=== PATIENT | female | born 1960 | race Caucasian/White ===

== ENCOUNTER → 2018-02-28 12:40 | Outpatient (CLI) | payer SELFPAY ==
[2018-02-28 13:35] LABS: ALKALINE PHOSPHATASE 174 U/L (46-116); ALT (SGPT) 13 U/L (10-68); BILIRUBIN - TOTAL 0.29 mg/dL (0.2-1.3); CALC OSMOLALITY 279 mosm/kg (275-300); CALCIUM 8.5 mg/dL (8.5-10.1); CARBON DIOXIDE 30.2 mmol/L (21.0-32.0); CHLORIDE - SERUM 105 mmol/L (98-107); CREATININE - SERUM 0.6 mg/dL (0.6-1.3); GLUCOSE 77 mg/dL (74-106); PROTEIN - SERUM 6.8 g/dL (6.4-8.2); SODIUM 142 mmol/L (136-145); UREA NITROGEN 6 mg/dL (7-18); VANCOMYCIN - TROUGH 23.1 ug/mL (10.0-20.0); eGFR NON AFRICAN AMERICAN > 90 mL/min (90-120)
== END | disposition home or self-care (01) ==
LOC: D.LABREF 12:40
PROVIDERS: Internal Medicine
DX: L03.311 Cellulitis of abdominal wall (principal)

== ENCOUNTER → 2018-03-03 16:06 | Outpatient (CLI) | payer MEDICAID ==
[2018-03-03 17:51] LABS: ALBUMIN 2.1 g/dL (3.4-5.0); ALKALINE PHOSPHATASE 227 U/L (46-116); ALT (SGPT) 21 U/L (10-68); CALC OSMOLALITY 285 mosm/kg (275-300); CALCIUM 7.9 mg/dL (8.5-10.1); CARBON DIOXIDE 26.8 mmol/L (21.0-32.0); CHLORIDE - SERUM 109 mmol/L (98-107); CREATININE - SERUM 0.6 mg/dL (0.6-1.3); POTASSIUM - SERUM 3.9 mmol/L (3.5-5.1); SODIUM 146 mmol/L (136-145); UREA NITROGEN 7 mg/dL (7-18); VANCOMYCIN - TROUGH 20.8 ug/mL (10.0-20.0); eGFR NON AFRICAN AMERICAN > 90 mL/min (90-120)
[2018-03-03 18:23] LABS: GLUCOSE 48 mg/dL (74-106)
== END | disposition home or self-care (01) ==
LOC: D.LABREF 16:06
PROVIDERS: Surgery
DX: L03.311 Cellulitis of abdominal wall (principal)

== ENCOUNTER → 2018-03-10 21:16 | Outpatient (CLI) | payer MEDICAID ==
[2018-03-10 22:40] LABS: ALBUMIN 2.1 g/dL (3.4-5.0); ALKALINE PHOSPHATASE 234 U/L (46-116); ALT (SGPT) 32 U/L (10-68); CALC OSMOLALITY 282 mosm/kg (275-300); CALCIUM 8.2 mg/dL (8.5-10.1); CARBON DIOXIDE 26.8 mmol/L (21.0-32.0); CHLORIDE - SERUM 111 mmol/L (98-107); CREATININE - SERUM 0.7 mg/dL (0.6-1.3); POTASSIUM - SERUM 3.7 mmol/L (3.5-5.1); PROTEIN - SERUM 6.1 g/dL (6.4-8.2); SODIUM 145 mmol/L (136-145); UREA NITROGEN 8 mg/dL (7-18); VANCOMYCIN - TROUGH 22.9 ug/mL (10.0-20.0); eGFR NON AFRICAN AMERICAN 90 mL/min (90-120)
[2018-03-10 22:41] LABS: GLUCOSE 30 mg/dL (74-106)
== END | disposition home or self-care (01) ==
LOC: D.LABREF 21:16
PROVIDERS: Internal Medicine
DX: L02.211 Cutaneous abscess of abdominal wall (principal); N64.89 Other specified disorders of breast

== ENCOUNTER → 2018-03-24 16:21 | Outpatient (CLI) | payer MEDICAID ==
[2018-03-24 20:09] LABS: HEMATOCRIT 32.6 % (36.0-48.0); MCH 27.1 pg (26.0-34.0); MCHC 30.7 g/dL (31.0-37.0); MCV 88.3 fL (80.0-100.0); MEAN PLATELET VOLUME 10.6 fL (7.4-10.4); PLATELET COUNT 160 10x3/uL (130-400); RBC 3.69 10x6/uL (4.00-5.40); RDW 15.7 % (11.5-14.5); WBC 2.4 10x3/uL (4.8-10.8)
[2018-03-24 20:46] LABS: CALC OSMOLALITY 282 mosm/kg (275-300); CALCIUM 8.4 mg/dL (8.5-10.1); CARBON DIOXIDE 27.4 mmol/L (21.0-32.0); CHLORIDE - SERUM 108 mmol/L (98-107); CREATININE - SERUM 0.5 mg/dL (0.6-1.3); POTASSIUM - SERUM 4.5 mmol/L (3.5-5.1); SODIUM 143 mmol/L (136-145); UREA NITROGEN 13 mg/dL (7-18); eGFR NON AFRICAN AMERICAN > 90 mL/min (90-120)
[2018-03-24 20:49] LABS: GLUCOSE 57 mg/dL (74-106)
[2018-03-24 21:13] LABS: EOSINOPHILS 9 % (0-7); LYMPHOCYTES 39 % (15-50); MONOCYTES 1 % (2-11); NEUTROPHILS 51 % (40-80); PLATELET ESTIMATE NORMAL
== END | disposition home or self-care (01) ==
LOC: D.LAB 16:21
PROVIDERS: Internal Medicine
DX: L02.211 Cutaneous abscess of abdominal wall (principal); Z98.84 Bariatric surgery status

== ENCOUNTER → 2018-05-01 17:30 | Outpatient (CLI) | payer MEDICAID ==
[2018-05-01 20:01] LABS: BASOPHILS 0.2 % (0-2); EOSINOPHILS 6.2 % (0-7); HEMATOCRIT 29.4 % (36.0-48.0); HEMOGLOBIN 9.2 g/dL (12-16); IMMATURE GRANULOCYTES 0.2 % (0-5); MCH 27.3 pg (26.0-34.0); MCHC 31.3 g/dL (31.0-37.0); MCV 87.2 fL (80.0-100.0); MEAN PLATELET VOLUME 9.3 fL (7.4-10.4); MONOCYTES 2.4 % (2-11); PLATELET COUNT 151 10x3/uL (130-400); RBC 3.37 10x6/uL (4.00-5.40); RDW 17.1 % (11.5-14.5); WBC 4.2 10x3/uL (4.8-10.8)
[2018-05-01 20:30] LABS: ALBUMIN 2.2 g/dL (3.4-5.0); ALKALINE PHOSPHATASE 241 U/L (46-116); ALT (SGPT) 42 U/L (10-68); BILIRUBIN - INDIRECT 0.14 mg/dL (0.00-1.00); BILIRUBIN - TOTAL 0.17 mg/dL (0.2-1.3); CALC OSMOLALITY 276 mosm/kg (275-300); CALCIUM 7.9 mg/dL (8.5-10.1); CARBON DIOXIDE 27.2 mmol/L (21.0-32.0); CHLORIDE - SERUM 106 mmol/L (98-107); CHOLESTEROL, TOTAL 144 mg/dL (0-200); CREATININE - SERUM 0.5 mg/dL (0.6-1.3); GLUCOSE 76 mg/dL (74-106); HDL CHOLESTEROL 36 mg/dL (32-96); LDL CHOLESTEROL 98 mg/dL (0-100); LDL-HDL RATIO 2.7 ratio (1.5-3.5); POTASSIUM - SERUM 4.5 mmol/L (3.5-5.1); PROTEIN - SERUM 6.6 g/dL (6.4-8.2); SODIUM 140 mmol/L (136-145); T4 THYROXIN - FREE 0.98 ng/dL (0.76-1.46); TRIGLYCERIDE 53 mg/dL (30-200); UREA NITROGEN 10 mg/dL (7-18); eGFR NON AFRICAN AMERICAN > 90 mL/min (90-120)
[2018-05-01 20:37] LABS: BILIRUBIN - DIRECT 0.03 mg/dL (0.00-0.30)
[2018-05-03 20:07] LABS: VITAMIN D 25 HYDROXY 21.1 ng/mL (30.0-100.0)
== END | disposition home or self-care (01) ==
LOC: D.LABREF 17:30
PROVIDERS: Internal Medicine
DX: R63.4 Abnormal weight loss (principal); L02.91 Cutaneous abscess, unspecified; E87.6 Hypokalemia; E16.2 Hypoglycemia, unspecified

== ENCOUNTER → 2018-05-23 13:33 | Outpatient (CLI) | payer MEDICAID ==
[2018-05-23 14:15] LABS: CALC OSMOLALITY 278 mosm/kg (275-300); CALCIUM 7.3 mg/dL (8.5-10.1); CARBON DIOXIDE 28.1 mmol/L (21.0-32.0); CHLORIDE - SERUM 107 mmol/L (98-107); CREATININE - SERUM 0.6 mg/dL (0.6-1.3); GLUCOSE 102 mg/dL (74-106); POTASSIUM - SERUM 3.9 mmol/L (3.5-5.1); SODIUM 139 mmol/L (136-145); UREA NITROGEN 15 mg/dL (7-18); VANCOMYCIN - TROUGH 16.3 ug/mL (10.0-20.0); eGFR NON AFRICAN AMERICAN > 90 mL/min (90-120)
== END | disposition home or self-care (01) ==
LOC: D.LABREF 13:33
PROVIDERS: Surgery
DX: L03.311 Cellulitis of abdominal wall (principal)

== ENCOUNTER → 2018-05-26 14:43 | Outpatient (CLI) | payer MEDICAID ==
[2018-05-26 15:57] LABS: CALC OSMOLALITY 275 mosm/kg (275-300); CALCIUM 7.5 mg/dL (8.5-10.1); CARBON DIOXIDE 28.6 mmol/L (21.0-32.0); CHLORIDE - SERUM 107 mmol/L (98-107); CREATININE - SERUM 0.5 mg/dL (0.6-1.3); GLUCOSE 81 mg/dL (74-106); SODIUM 139 mmol/L (136-145); UREA NITROGEN 10 mg/dL (7-18); VANCOMYCIN - TROUGH 16.6 ug/mL (10.0-20.0); eGFR NON AFRICAN AMERICAN > 90 mL/min (90-120)
== END | disposition home or self-care (01) ==
LOC: D.LABREF 14:43
PROVIDERS: Obstetrics & Gynecology
DX: L03.311 Cellulitis of abdominal wall (principal)

== ENCOUNTER → 2018-06-02 13:37 | Outpatient (CLI) | payer MEDICAID ==
[2018-06-02 15:58] LABS: CALC OSMOLALITY 281 mosm/kg (275-300); CALCIUM 7.6 mg/dL (8.5-10.1); CARBON DIOXIDE 27.6 mmol/L (21.0-32.0); CHLORIDE - SERUM 106 mmol/L (98-107); CREATININE - SERUM 0.6 mg/dL (0.6-1.3); POTASSIUM - SERUM 3.9 mmol/L (3.5-5.1); SODIUM 143 mmol/L (136-145); UREA NITROGEN 12 mg/dL (7-18); eGFR NON AFRICAN AMERICAN > 90 mL/min (90-120)
[2018-06-02 16:10] LABS: GLUCOSE 52 mg/dL (74-106)
== END | disposition home or self-care (01) ==
LOC: D.LABREF 13:37
PROVIDERS: Obstetrics & Gynecology
DX: L03.311 Cellulitis of abdominal wall (principal)

== ENCOUNTER → 2019-06-03 08:49 | Outpatient (CLI) | payer MEDICAID ==
--- NOTE | ~2019-06-03 | ST ---
PATIENT:BRAD GREY MEDICAL RECORD: [id number] SEX: F LOCATION:[facility] ORDER #: ADMISSION DATE: 06/03/19 AGE OF PATIENT: 59 REFERRING PHYSICIAN: INTERPRETING PHYSICIAN: CHRISTIANO GUZMAN MD DATE OF SERVICE: 06/03/2019 NUCLEAR STRESS TEST INDICATION: Angina. Family history of coronary artery disease. She was exercised on standard Lexiscan protocol with 27 mCi of sestamibi injected at peak stress, 9 mCi were used previously for rest images.. FINDINGS: Gated SPECT reveals preserved ejection fraction at 62% with good wall motioning and thickening and brightening throughout all segments. SPECT imaging Cardiolite was used as myocardial perfusion agent. There is reversibility inferior as well as lateral. This includes the basal and mid lateral segments. The degree of reversibility is mild to moderate. The amount of myocardium involved is moderate. OVERALL IMPRESSION: 1. This is an intermediate risk nuclear stress test significant amount of myocardium at risk with reversible ischemia inferiorly as well as laterally. 2. Gated SPECT reveals preserved ejection fraction at 62% in this patient with ongoing symptomatology, the current scan does suggest presence of hemodynamically significant coronary artery disease. TRANSINT:[id number] Voice Confirmation ID: [id number] DOCUMENT ID: [id number] CHRISTIANO GUZMAN MD CC: ZEE DUKE MD [id number] DICTATION DATE: 06/09/1939 FUNERAL SERVICE MANAGER: 06/09/192226 DEP CLI 06/03/19 [facility] [address] [place] [address]
== END | disposition home or self-care (01) ==
LOC: D.HCCARDIO 08:49
PROVIDERS: ATTEND Internal Medicine Interventional Cardiology
DX: R07.9 Chest pain, unspecified (principal)

== ENCOUNTER 2019-06-12 13:55 | Inpatient (IN) | payer MEDICAID ==
[~2019-06-12] VITALS: Ht 121.9 cm; Wt 56.8 kg
--- NOTE | ~2019-06-12 | HEMODYNAMI ---
PATIENT:BRAD GREY MEDICAL RECORD: [id number] : 56 [facility] [id number] ADMISSION DATE: 06/12/19 Generatedon:06/15/201911:25 Patient name: BRAD GREY Patient #: [id number] SSN: [id number] : 1960 Date of study: 06/15/2019 Page: Of Hemodynamic Procedure Report Patient Data Patient Demographics Procedure consent was obtained First Name: BRAD Gender: Female Last Name: MATILDA : 1960 [facility] Initial: L Age: 59 year(s) Patient #: [id number] Race: SSN: [id number] Additional ID: [id number] Contact details [address]: [address] [place] [address] State: [place] City: [place] Zip code: [address] Admission Admission Data Admission Date: 06/12/2019 Admission Time: 18:46 Arrival Date: 06/12/2019 Arrival Time: 18:46 Admit Source: Emergency Insurance Payor: Medicaid department Room #: D.2120 Height (in.): 48.03 BSA: 1.3 (m2) Height (cm.): 122 BMI: 38.3 (kg/m2) Weight (lbs.): 125.66 Weight (kg.): 57 Lab Results Lab Result Date: 06/15/2019 Lab Result Time: 0:00 Biochemistry Name Units Result Min Max BUN mg/dl 9 --(*---)-- 7 18 Creatinine mg/dl 0.6 --(*---)-- 0.6 1.3 eGFR ml/min 90 --(*---)-- 90 120 NONAFRICAN CBC Name Units Result Min Max Hemoglobin g/dl 10.6 *-(----)-- 13.5 17.5 Procedure Procedure Types Cath Procedure Diagnostic Procedure LHC LHC w/Coronaries Sedation Charges Moderate Sedation up to 15 minutes Procedure Description Procedure Date Procedure Date: 06/15/2019 Procedure Start Time: 11:09 Procedure End Time: 11:15 Procedure Staff Name Function Macario Cobb MD Performing Physician Natali Frye RT Monitor Freedom Smith RT Scrub Cristal Davey RN Nurse Procedure Data Cath Procedure Fluoroscopy Diagnostic fluoroscopy Total fluoroscopy Time: 0.9 time: 0.9 min min Diagnostic fluoroscopy Total fluoroscopy dose: 391 dose: 391 mGy mGy Contrast Material Contrast Material Type Amount (ml) Isovue 300 63 Entry Location Entry Primary Successful Side Size Upsize Upsize Entry Closure Succes sful Closure Location (Fr) 1 (Fr) 2 (Fr) Remarks Device Remarks Femoral Right 5 Fr Exoseal artery Estimated blood loss: 5 ml Diagnostic catheters Device Type Used For End Catheter Placement MULTIPACK Pigtail 5 Fr LV Angiography catheter MULTIPACK JL 4.0 5Fr Left Coronary catheter Angiography MULTIPACK 3DRC 5Fr Right Coronary catheter Angiography Procedure Complications No complications Procedure Medications Medication Administration Route Dosage Oxygen NC 2 l/min Lidocaine 2% added to field 20 Heparin Flush Bag added to field 2 bags (1000units/500ml NS) 0.9% NaCl I.V. 100 ml/hr Versed I.V. 2 mg Fentanyl I.V. 100 mcg Hemodynamics Rest BSA: 1.3 (m2) HGB: 10.6 (g/dl) O2 Consumption: Estimated: 123.15 (ml/min) O2 Con sumption indexed: Estimated:94.73 (ml/min/m) Heart Rate: 71 (bpm) Pressure Samples Time Site Value (mmHg) Purpose Heart Use Rate(bpm) 11:11 LV 27/13,22 Snapshot 59 Snapshots Pre Cath Intra NCS Post Cath Vital Signs Time Heart Resp SPO2 etCO2 NIBP (mmHg) Rhythm Pain Sedation Rate (ipm) (%) (mmHg) Status Level (bpm) 11:00:36 71 14 98 42.9 Auto NIBP NSR 0 (11) 10(A) off , No pain 11:01:36 70 19 100 45.9 143/80(102) NSR 0 (11) 10(A) , No pain 11:05:47 68 18 99 42.9 127/73(92) NSR 0 (11) 10(A) , No pain 11:09:57 69 13 99 48.9 116/66(85) NSR 0 (11) 9(A) , No pain 11:14:03 79 17 98 54.8 113/64(94) NSR 0 (11) 9(A) , No pain 11:19:50 71 15 96 25.5 124/67(92) NSR 0 (11) 10(A) , No pain Medications Time Medication Route Dose Verified Delivered Reason Notes Eff ectiveness by by 11:01:08 Oxygen NC 2 Cristal Cristal used for l/min Petar Petar parquet floor layer's helper RN 11:01:20 Lidocaine 2% added 20ml Cristal Cristal for local to vial Petar Petar anesthetic field RN RN 11:01:29 Heparin Flush added 2 Cristal Cristal used for Bag to bags Petar Petar procedure (1000units/500ml field RN RN NS) 11:01:41 0.9% NaCl I.V. 100 Cristal Cristal used for ml/hr Petar Petar parquet floor layer's helper RN 11:08:36 Versed I.V. 2 mg Macario Bee for Jordyn Sealselor sedation RN 11:12:54 Fentanyl I.V. 100 Macario Cristal for mcg Jordyn MANN Petar sedation national sales Log Time Note 10:32:36 Diagnostic Cath Status : Urgent 10:34:05 Informed consent obtained and on chart 10:37:34 Admit Source: Emergency department 10:37:38 Arrival Date: 06/12/2019 6:46:00 PM 10:37:47 Insurance Payor : Medicaid 10:37:53 Patient Height : 48.03 inches 10:37:59 Patient Weight : 125.66 lbs 10:38:07 ACC Patient presents with Unstable Angina CCS Anginal Class 3--Marked limitation of physical activity, angina occurs with ordinary activity.. 10:38:14 Procedure Status Urgent Heart Cath (IP). 10:38:17 Cristal Davey RN sent for patient. Start room use. 10:38:18 Time tracking: Regular hours (M-F 7:00 - 5:00) 10:38:22 Plan of Care:Hemodynamics will remain stable., Cardiac rhythm will remain stable., Comfort level will be maintained., Respiratory function will remain adequate., Patient/ family verbilizes understanding of procedure., Procedure tolerated without complication., Recovers from procedure without complications.. 10:39:19 Lab Result : eGFR NONAFRICAN 90 ml/min 10:39:19 Lab Result : Hemoglobin 10.6 g/dl 10:39:19 Lab Result : BUN 9 mg/dl 10:39:19 Lab Result : Creatinine 0.6 mg/dl 10:39:26 1) 90+ Normal kidney functon but urine findings or structural abnormalities or genetic trait point to kidney disease. 10:39:29 Maximum allowable contrast dose (3.7 X eGFR X 0.75)250 ml. 10:52:43 Patient received from Med II to CCL 2 Alert and oriented. Tansferred to table in Supine position. 10:52:44 Warm blankets applied, and wellington hugger turned on for patient comfort. 10:52:45 Correct patient and procedure confirmed by team. 10:52:45 ECG and BP/O2 sat monitors applied to patient. 11:00:25 Vital chart was started 11:01:08 Oxygen 2 l/min NC was administered by Cristal Davey RN; used for procedure; 11:01:20 Lidocaine 2% 20ml vial added to field was administered by Cristal Davey RN; for local anesthetic; 11:01:29 Heparin Flush Bag (1000units/500ml NS) 2 bags added to field was administered by Cristal Davey RN; used for procedure; 11:01:41 0.9% NaCl 100 ml/hr I.V. was administered by Cristal Davey RN; used for procedure; 11:03:50 Baseline sample Acquired. 11:03:53 Rhythm: sinus rhythm 11:03:54 Full Disclosure recording started 11:04:01 H&P Date Dictated: 06/15/2019 New H&P dictated by physician.. 11:04:02 Pre-procedure instructions explained to patient. 11:04:03 Pre-op teaching completed and patient verbalized understanding. 11:04:04 Family in waiting room. 11:04:06 Patient NPO since Midnight. 11:04:08 Is the patient allergic to Iodine/contrast media? Yes. 11:04:09 Was the patient premedicated? Yes 11:04:15 Is patient on blood thinner?No 11:04:16 Patient diabetic? No. 11:04:18 Previous problem with sedation/anesthesia? No ? 11:04:20 Snore? No 11:04:21 Sleep apnea? No 11:04:22 Deviated septum? No 11:04:23 Opens mouth fully? Yes 11:04:23 Sticks out tongue? Yes 11:04:25 Airway obstruction? No ? 11:04:27 Dentures? No ? 11:04:53 Patient pain scale 0/10 ?. 11:04:58 IV patent on arrival in right forearm with 0.9% NaCl at O. 11:05:00 Lab results completed and on chart. 11:05:06 Right groin area was prepped with chlora-prep and draped in sterile fashion 11:05:07 Sharps counted by scrub and verified by R.N. 11:05:07 Alarms reviewed by R. N. 11:08:27 Physician arrived 11::27 --------ALL STOP TIME OUT------ 11:08:28 Final Timeout: patient, procedure, and site verified with staff and physician. All members of the team are in agreement. 11:08:29 Right groin site verified by team. 11:08:36 Versed 2 mg I.V. was administered by Cristal Davey RN; for sedation; 11:08:37 Fire Safety Assessment: A--An alcohol-based skin anteseptic being used preoperatively., C--Open oxygen or nitrous oxide is being used., D--An ESU, laser, or fiber-optic light is being used. 11:08:41 Physical assessment completed. ASA score P 2 - A patient with mild systemic disease as per Macario Cobb MD. 11:08:46 Sedation plan: IV Moderate Sedation Medication:Versed, Fentanyl 11:08:56 Use device set Femoral Dx 11:08:58 ACIST Syringe (96735) opened to sterile field. 11:08:58 Bag Decanter (2001S) opened to sterile field. 11:08:59 Medline Cath Pack ([id number]) opened to sterile field. 11:09:00 ACIST Hand Control (60644) opened to sterile field. 11:09:00 ACIST Manifold (05691) opened to sterile field. 11:09:01 DIAGNOSTIC Multipack 5Fr catheter set (QI8044) opened to sterile field. 11:09:01 Tegaderm 4 x 4 (1626W) opened to sterile field. 11:09:02 SHEATH 5FR Beyer (MZJ876) opened to sterile field. 11:09:03 EMERALD Guide Wire (297-259) opened to sterile field. 11:09:07 Procedure started. 11::09 Local anesthetic to right femoral artery with Lidocaine 2% by Macario Cobb MD.INITIAL ACCESS ONLY 11:09:19 A 5 Fr sheath was inserted into the Right Femoral artery 11:09:23 Zero performed for pressure channel P1 11:10:30 A MULTIPACK Pigtail 5 Fr catheter was advanced over the wire and used for LV Angiography. 11:11:26 LV hemodynamics recorded. 11:11:26 LV gram done using SEARS 11:11:29 Injector settings: Ml/sec: 5, Volume: 15\, 11:11:41 EF : 60 % 11:11:44 Catheter removed. 11:11:48 A MULTIPACK JL 4.0 5Fr catheter was advanced over the wire and used for Left Coronary Angiography. 11:12:18 LCA angiography performed. 11:12:26 Injector settings: Ml/sec: 3, Volume: 6, 11:12:40 Catheter removed. 11:12:45 A MULTIPACK 3DRC 5Fr catheter was advanced over the wire and used for Right Coronary Angiography. 11:12:54 Fentanyl 100 mcg I.V. was administered by Cristal Davey RN; for sedation; 11:13:45 RCA angiography performed. 11:13:48 Injector settings: Ml/sec: 3, Volume: 6, 11:13:54 Catheter removed. 11:14:00 ACCDominant side:Right 11:14:02 EXOSEAL 5Fr (EX500) opened to sterile field. 11:14:10 Sheath removed intact; hemostasis achieved with Exoseal to the Right Femoral artery. 11:14:13 Procedure ended.(Physican Out) 11:14:27 Fluoroscopy time 00.90 minutes. 11:14:31 Flurop Dose total: 391 11:14:31 Fluoroscopy dose: 391 mGy 11:14:39 Dose Area Product 86813 mGy/cm. 11:14:44 Contrast amount:Isovue 300 63ml. 11:14:45 Sharps counted by scrub and verified by R.N. 11:15:10 Insertion/operative site no bleeding no hematoma. 11:15:15 Post-op/insertion site Right Femoral artery dressed using a 4 x 4 and Tegaderm. 11:15:17 Post Procedure Pulses reassessed and unchanged 11:15:20 Post procedure rhythm: unchanged. 11:15:22 Estimated blood loss: 5 ml 11:15:24 Post procedure instruction explained to patient.Patient verbalizes understanding. 11:15:24 Patient needs reinforcement of post procedure teaching. 11:15:30 Procedure type changed to Cath procedure, Diagnostic procedure, LHC, LHC w/Coronaries, Sedation Charges, Moderate Sedation up to 15 minutes 11:15:32 Procedure and supply charges have been captured, reviewed, submitted and are correct. 11:15:36 Procedure Complication : No complications 11:15:38 Vital chart was stopped 11:15:38 See physician's report for complete and final results. 11:15:41 Report given to Med II. 11:15:45 Patient transfered to Med II with Stretcher. 11:15:48 Procedure ended. 11:15:48 Full Disclosure recording stopped 11:15:57 End room use (Document Last) Device Usage Item Name Manufacture Quantity Catalog Hospital Part Current Minimal L ot# / Number Charge Number Stock Stock Serial# Code ACIST Acist 1 [id number] [id number] 388346 542164 20 Syringe Medical (09455) Systems Inc Bag Microtek 1 2001S 607265 96220 884387 5 Decanter Medical Inc. () Medline Medline 1 [id number] 955882 84836 261862 5 Cath Pack ([id number]) ACIST Hand Acist 1 73217 318074 847413 333224 5 Control Medical (75395) Systems Inc ACIST Acist 1 74050 111441 742967 100773 5 Manifold Medical (87274) Systems Inc DIAGNOSTIC Cardinal 1 [id number] 393909 88927 467671 30 MultipGeneformics Data Systems Ltd. 5Fr catheter set (LQ5984) Tegaderm 4 3M 1 1626W 633902 705176 405277 5 x 4 (1626W) SHEATH 5FR Terumo 1 VOE314 806587 320369 433722 5 Beyer (HKM201) EMERALD Cardinal 1 502-455 561057 205132 928256 5 Guide Wire Health (769-594) MULTIPACK Cardinal 1 179029 5 Pigtail 5 Health Fr catheter MULTIPACK Cardinal 1 364683 5 JL 4.0 5Fr Health catheter MULTIPACK Cardinal 1 716992 5 3DRC 5Fr Health catheter EXOSEAL 5Fr Cardinal 1 EX500 337881 427244 004183 10 (EX500) Health Signature Audit [place] Stage Time Signature Unsigned Intra-Procedure 06/15/2019 Natali Frye 11:22:54 AM RT(R) Intra-Procedure 06/15/2019 Cristal 11:23:20 AM Petar RN Intra-Procedure 06/15/2019 Macario Cobb 11:25:11 AM [place] [id number] [place] [id number]
[2019-06-12] MEDS ORDERED: PRECOSE100 MG PO (14:11)
[2019-06-12] MEDS ORDERED: APAP325 MG PO (14:11)
[2019-06-12] MEDS ORDERED: C-10001000 MG PO (14:12)
[2019-06-12] MEDS ORDERED: CELEXA40 MG PO (14:12)
[2019-06-12] MEDS ORDERED: VITAMIN D5000 UNIT PO (14:12)
[2019-06-12] MEDS ORDERED: AMRIX30 MG PO (14:13)
[2019-06-12] MEDS ORDERED: PROGLYCEM PO (14:14)
[2019-06-12] MEDS ORDERED: FERROUS SULFAT325 MG PO (14:14)
[2019-06-12] MEDS ORDERED: COLACE100 MG PO (14:14)
[2019-06-12] MEDS ORDERED: DILAUDID2 MG PO (14:15)
[2019-06-12] MEDS ORDERED: NEURONTIN600 MG PO (14:15)
[2019-06-12] MEDS ORDERED: PROTONIX40 MG PO (14:15)
[2019-06-12] MEDS ORDERED: LASIX40 MG PO (14:15)
[2019-06-12] MEDS ORDERED: PLAQUENIL PO (14:16)
[2019-06-12] MEDS ORDERED: HEALTHYLAX17 GM PO (14:17)
[2019-06-12] MEDS ORDERED: REQUIP XL2 MG PO (14:17)
[2019-06-12] MEDS ORDERED: PRENAVITE1 TAB PO (14:17)
[2019-06-12] MEDS ORDERED: K-DUR20 MEQ PO (14:17)
[2019-06-12] MEDS ORDERED: TEMAZEPAM30 MG PO (14:18)
[2019-06-12 14:46] LABS: BASOPHILS 0.7 % (0-2); EOSINOPHILS 7.2 % (0-7); HEMATOCRIT 36.1 % (36.0-48.0); LYMPHOCYTES 25.8 % (15-50); MCH 30.8 pg (26.0-34.0); MCHC 33.2 g/dL (31.0-37.0); MCV 92.8 fL (80.0-100.0); MEAN PLATELET VOLUME 8.7 fL (7.4-10.4); MONOCYTES 9.9 % (2-11); NEUTROPHILS 56.4 % (40-80); RBC 3.89 10x6/uL (4.00-5.40); RDW 16.3 % (11.5-14.5)
[2019-06-12 14:49] LABS: PLATELET COUNT 195 10x3/uL (130-400)
--- NOTE | 2019-06-12 14:50 | NUR ---
PATIENT REQUESTING SOMETHING FOR PAIN; EDP NOTIFIED;
[2019-06-12 14:56] LABS: APTT 29.1 SECONDS (22.8-39.4); INR 1.01 (0.85-1.17); PROTIME 12.8 SECONDS (11.6-15.0)
[2019-06-12 15:01] LABS: ALBUMIN 2.8 g/dL (3.4-5.0); ALKALINE PHOSPHATASE 112 U/L (46-116); ALT (SGPT) 16 U/L (10-68); BILIRUBIN - TOTAL 0.39 mg/dL (0.2-1.3); CALC OSMOLALITY 277 mosm/kg (275-300); CALCIUM 8.6 mg/dL (8.5-10.1); CARBON DIOXIDE 30.1 mmol/L (21.0-32.0); CHLORIDE - SERUM 104 mmol/L (98-107); CREATININE - SERUM 0.5 mg/dL (0.6-1.3); PROTEIN - SERUM 6.7 g/dL (6.4-8.2); SODIUM 140 mmol/L (136-145); UREA NITROGEN 10 mg/dL (7-18); eGFR NON AFRICAN AMERICAN > 90 mL/min (90-120)
[2019-06-12 15:06] LABS: GLUCOSE 93 mg/dL (74-106)
[2019-06-12 15:12] LABS: CKMB 0.5 U/L (0.0-3.6); CREATINE KINASE 83 UL (21-215); TROPONIN-I < 0.017 ng/mL (0.000-0.060)
[2019-06-12 16:09] VITALS: BP 154/94
--- NOTE | 2019-06-12 16:10 | NUR ---
PATIENT AWAKE AND ALERT; NO NEEDS NOTED; FAMILY AT BEDSIDE; UPDATED ON PLAN OF CARE AND DELAYS IN CARE; WILL CONTINUE TO MONITOR.
--- NOTE | 2019-06-12 17:20 | NUR ---
THE SPOUSE OF THE PATIENT IS STANDING IN THE COY WAY ASKING FOR DILAUID FOR THE PATIENT; STATES THE OTHER MEDICINE DIDN'T DO ANYTHING FOR HER. INFORMED EDP OF PATIENT'S PAIN AND FENTANYL ORDERED. PATIENT STATES HER PCP HAS REFERRED HER TO A PAIN CLINIC IN [place] BUT SHE IS STILL AWAITING AN APPOINTMENT. SHE IS AWAKE AND ALERT; COLOR WNL FOR RACE; COLOR WNL FOR RACE; UPDATED ON PLAN OF CARE AND DELAYS IN CARE; WILL CONTINUE TO MONITOR.
--- NOTE | 2019-06-12 19:06 | NUR ---
BEDSIDE REPORT HANDED OFF VIA SBAR FROM SURINDER SOTO.
[2019-06-12 19:16] VITALS: BP 148/82
--- NOTE | 2019-06-12 19:27 | MORECARE ---
CASE MANAGEMENT DISCHARGE SUMMARY PATIENT: BRAD GREY UNIT: [id number] ADM DATE: 06/12/19 AGE: 59 : 56 SEX: F ROOM/BED: D.1590 AUTHOR: SLIME CASTANEDA PHYSICIAN: REFERRING PHYSICIAN: DENNIS PATEL MD DATE OF SERVICE: 06/12/19 Discharge Plan Patient Name: BRAD GREY [facility] [facility] 1960 Planned Disposition: Anticipated Discharge Date: Discharge Date: Expected LOS: Initial Reviewer: [email or web address] Initial Review Date: 06/12/2019 Generated: 06/12/19 8:27 pm Patient Name: BRAD GREY Page 44034 at 1926 All edits/amendments must be made on the electronic document DICTATION DATE: 06/12/191926 CREDIT UNDERWRITER: JOSE D 06/12/191926 RPT#: [id number] DC DATE: STATUS: ADM IN [facility] [address] [place] [address] END OF REPORT
[2019-06-12 20:16] VITALS: BP 114/86
--- NOTE | 2019-06-12 20:19 | NUR ---
PT ARRIVED TO ROOM 2119 FROM ER VIA WHEELCHAIR. INDEPENDENT WITH TRANSFERS. ASKING ER NURSE TO HAVE THIS NURSE BRING HER MORE PAIN MEDS SOON SHE GOT INTO BED. Marisol FRANKS APN ON FLOOR TO SEE PATIENT.
--- NOTE | 2019-06-12 20:52 | NUR ---
MARY CUNNINGHAM IN ROOM AT BEDSIDE.
[2019-06-12 23:13] VITALS: BP 153/88
[2019-06-12 23:42] LABS: CKMB 0.4 U/L (0.0-3.6); CREATINE KINASE 87 UL (21-215); GLUCOSE 99 mg/dL (74-106)
[2019-06-12 23:44] LABS: TROPONIN-I < 0.017 ng/mL (0.000-0.060)
[2019-06-13] VITALS (7 sets, daily range): BP systolic 114–150; BP diastolic 75–89; Ht 121.9 cm; Wt 56.8 kg
--- NOTE | 2019-06-13 00:41 | NUR ---
PT C/O SEVERE ITCHING AFTER VANCOMYCIN HAD INFUSED. SHE IS SCRATCHING HER ARMS AND TORSO AND BELIEVES THIS HAPPENED IN THE PAST WHEN SHE TOOK VANCOMYCIN BUT SHE DID NOT CONNECT IT TO THE MED. REQUEST FOR BENADRYL. PAGE/RETURN CALL TO [facility] APN AND ORDER RECIEVED FOR BENADRYL 25MG IV QHR PRN FOR ITCHING. DOSE ADMINISTERED AND PT ASSISTED TO USE BSC TO VOID AND THEN BACK TO BED. CALL LIGHT IN REACH. ROOFING LABORER BUTTON IN REACH. NO OTHER NEEDS.
[2019-06-13 06:44] LABS: HEMATOCRIT 32.9 % (36.0-48.0); HEMOGLOBIN 10.6 g/dL (12-16); MCH 30.3 pg (26.0-34.0); MCHC 32.2 g/dL (31.0-37.0); MEAN PLATELET VOLUME 9.1 fL (7.4-10.4); PLATELET COUNT 162 10x3/uL (130-400); RDW 16.5 % (11.5-14.5)
[2019-06-13 06:50] LABS: WBC 2.5 10x3/uL (4.8-10.8)
[2019-06-13 07:22] LABS: ALBUMIN 2.3 g/dL (3.4-5.0); ALKALINE PHOSPHATASE 146 U/L (46-116); ALT (SGPT) 39 U/L (10-68); BILIRUBIN - TOTAL 0.37 mg/dL (0.2-1.3); CALC OSMOLALITY 284 mosm/kg (275-300); CARBON DIOXIDE 27.9 mmol/L (21.0-32.0); CHLORIDE - SERUM 108 mmol/L (98-107); CKMB 0.5 U/L (0.0-3.6); CREATINE KINASE 57 UL (21-215); CREATININE - SERUM 0.6 mg/dL (0.6-1.3); GLUCOSE 81 mg/dL (74-106); MAGNESIUM - SERUM 1.9 mg/dL (1.8-2.4); PHOSPHOROUS 4.4 mg/dL (2.5-4.9); POTASSIUM - SERUM 4.3 mmol/L (3.5-5.1); PRO BNP 268 pg/mL (0-125); PROTEIN - SERUM 5.8 g/dL (6.4-8.2); SODIUM 144 mmol/L (136-145); TROPONIN-I < 0.017 ng/mL (0.000-0.060); UREA NITROGEN 9 mg/dL (7-18); eGFR NON AFRICAN AMERICAN > 90 mL/min (90-120)
--- NOTE | 2019-06-13 07:33 | NUR ---
AM MEDS ROUNDS- PT RESTING COMFORTABLY IN BED, EASILY AROUSES TO VOICE. PT A/O X4, RESP EVEN AND NONLABORED ON RA. RT CHEST PORT INFUSING NS AT 50 AND DILAUDID LICENSED VOCATIONAL NURSE AT 0.2MG, Q10MIN WITH 4MG LOCKOUT. PT DENIES ANY PAIN AT THIS TIME. REDNESS NOTED TO RT CHEST AREA. PT DENIES ANY NEEDS AT THIS TIME. CALL LIGHT IN REACH, NAD NOTED, WILL CONTINUE PLAN OCARE.
[2019-06-13 07:49] LABS: BASOPHILS 4 % (0-2); EOSINOPHILS 6 % (0-7); LYMPHOCYTES 22 % (15-50); MONOCYTES 6 % (2-11); NEUTROPHILS 60 % (40-80); PLATELET ESTIMATE NORMAL
[2019-06-13 11:23] LABS: CKMB 0.3 U/L (0.0-3.6); CREATINE KINASE 57 UL (21-215)
[2019-06-13 11:25] LABS: TROPONIN-I < 0.017 ng/mL (0.000-0.060)
--- NOTE | 2019-06-13 12:04 | NUR ---
BLOOD SUGAR OF 83, ALSO COLLECTED URINE SAMPLE AND WILL TAKE TO LAB. PT DENIES ANY NEEDS AT THIS TIME. CALL LIGHT IN REACH. NAD NOTED,WILL CONTINUE TO MONITOR.
[2019-06-13 12:19] LABS: APPEARANCE CLEAR (CLEAR); BILIRUBIN NEGATIVE (NEGATIVE); COLOR STRAW (YELLOW); GLUCOSE NEGATIVE (NEGATIVE); KETONE NEGATIVE (NEGATIVE); NITRITE NEGATIVE (NEGATIVE); PROTEIN NEGATIVE (NEGATIVE); UROBILINOGEN NORMAL (NORMAL)
--- NOTE | 2019-06-13 12:42 | NUR ---
PT TO CT VIA BED, NAD NTOED.
--- NOTE | 2019-06-13 16:09 | NUR ---
BLOOD SUGAR OF 86. PT IN BED, RESTING COMFORTABLY IN BED, DENIES ANY NEEDS AT THIS TIME. CALL LIGHT IN REACH, NAD NOTED.
--- NOTE | 2019-06-13 19:32 | NUR ---
INITIAL ROUNDS COMPLETED. NO DISTRESS NOTED. SR UP X2, CALL LIGHT WITHIN REACH.
--- NOTE | 2019-06-13 22:08 | NUR ---
ASSESSMENT COMPLETED AT 2000 HRS. VSS. SR PER CM HR 76. IV TO R CHEST INFUSAPORT WITH NS AT 50CC/HR AND DILAUDID PRICE ECONOMIST .2MG Q10 MINUTES WITH 4MG Q4HR LO. PT STATES PAIN IS TOLERABLE AT THAT TIME. R CHEST RED. LUNGS DIMINISHED IN BASES BILAT. ACTIVE BS NOTED. HEART TONES S1 S2. BILAT AKA NOTED. FSBS 112. ASSISTED PT TO BSC. VOIDED. 400CC OF YELLOW URINE. ASSSISTED BACK TO BED. PM MEDS GIVEN. PT CURRENTLY RESTING WITH EYES CLOSED. RESP EVEN AND REGULAR. SR UP X2, CALL LIGHT AND PRICE ECONOMIST BUTTON WITHIN REACH.
--- NOTE | 2019-06-14 00:23 | NUR ---
PT STASES SHE FEELS WEIRD. BS 81. ORANGE JUICE AND MATTY CRACKERS GIVEN PER REQUEST. WILL CONTINUE TO MONITOR.
--- NOTE | 2019-06-14 02:26 | NUR ---
PT RESTING WITH EYES CLOSED. RESP EVEN AND REGULAR. SR UP X2, CALL LIGHT WITHIN REACH.
[2019-06-14 04:00] VITALS: BP 124/72
--- NOTE | 2019-06-14 04:24 | NUR ---
PT AROUSDES TO VERBAL STIMULI. STATES PAIN STAYING AROUND 5/10. CALL LIGHT WITHIN REACH.
[2019-06-14 06:18] LABS: CALC OSMOLALITY 280 mosm/kg (275-300); CALCIUM 8.1 mg/dL (8.5-10.1); CARBON DIOXIDE 31.3 mmol/L (21.0-32.0); CHLORIDE - SERUM 106 mmol/L (98-107); CREATININE - SERUM 0.6 mg/dL (0.6-1.3); GLUCOSE 88 mg/dL (74-106); MAGNESIUM - SERUM 1.6 mg/dL (1.8-2.4); PHOSPHOROUS 3.7 mg/dL (2.5-4.9); POTASSIUM - SERUM 3.7 mmol/L (3.5-5.1); SODIUM 142 mmol/L (136-145); UREA NITROGEN 9 mg/dL (7-18); eGFR NON AFRICAN AMERICAN > 90 mL/min (90-120)
--- NOTE | 2019-06-14 06:29 | NUR ---
VSS THROUGHOUT NIHGT. PT STATES DILAUDID AIRBORNE ELECTRONICS ANALYST MAKES HER PAIN BEARABLE. PT UNHAPPY THAT C NOT UNTIL SATURDAY. NEEDS MET; WILL CONTINUE TO MONITOR.
[2019-06-14 06:54] LABS: BASOPHILS 1.1 % (0-2); EOSINOPHILS 9.2 % (0-7); HEMATOCRIT 32.6 % (36.0-48.0); HEMOGLOBIN 10.6 g/dL (12-16); IMMATURE GRANULOCYTES 0.7 % (0-5); LYMPHOCYTES 24.6 % (15-50); MCH 30.4 pg (26.0-34.0); MCHC 32.5 g/dL (31.0-37.0); MCV 93.4 fL (80.0-100.0); MEAN PLATELET VOLUME 9.6 fL (7.4-10.4); NEUTROPHILS 53.4 % (40-80); PLATELET COUNT 191 10x3/uL (130-400); RBC 3.49 10x6/uL (4.00-5.40); WBC 2.7 10x3/uL (4.8-10.8)
[2019-06-14 08:00] VITALS: BP 133/77
--- NOTE | 2019-06-14 08:41 | NUR ---
AM MEDS GIVEN AT THIS TIME. ALSO GAVE 4MG OF ZOFRAN PER PT REQUEST. WAITING ON VANC TROUGH TO HAND VANCOMYCIN. PT A/O X4, RESP EVEN AND NONLABORED ON RA. RT CHEST PORT INFUSING NS AT 50CC/HR AND DILAUDID INVESTIGATIONS CHIEF AT 0.2MG Q10MIN WITH 4MG LOCKOUT. MONITOR SHOWING SR WITH RATE OF 64. PT DENIES ANY NEEDS AT THIS TIME. CALL LIGHT IN REACH, NAD NOTED,W ILL CONTIUE PLAN OF CARE.
--- NOTE | 2019-06-14 11:30 | NUR ---
HELPED PT TO USE BEDSIDE COMMODE. PT DENIES ANY OTHER NEEDS AT THIS TIME. CALL LIGHT IN REACH, NAD NOTED, WILL CONTINUE TO MONITOR.
[2019-06-14 12:00] VITALS: BP 136/83
[2019-06-14 16:00] VITALS: BP 143/80
--- NOTE | 2019-06-14 19:11 | NUR ---
INITIAL ROUNDS COMPLETED. NO DISTRESS NOTED. CALL LIGHT WITHIN REACH.
[2019-06-14 20:00] VITALS: BP 116/69
--- NOTE | 2019-06-14 21:43 | NUR ---
ASSESSMENT COMPLETED AT 1955H RS. VSS. SR PER CM HR 75. PT CONTINUES TO HAVE C/O CONSTANT PAIN TO R SIDE OF HER CHEST. STSES DILAUDID POLISHER EYEGLASS FRAMES MAKES IT BEARABLE. IV TO R CHEST INFUSAPORT WITH NS AT 50CC/HR AND DILAUDID POLISHER EYEGLASS FRAMES 0.2MG Q 10 MINUTES WITH 4MG Q4HRS LO. PT STATES DILAUDID POLISHER EYEGLASS FRAMES NOT WORKING. EXPLAINED TO PT POLISHER EYEGLASS FRAMES LOCK OUT SYSTEM. R CHEST INCISION SLIGHTLY RED. BILAT MASECTOMY NOTED. LUNGS DIMINISHED IN BASES BILAT. ABD SOFT WITH ACTIVE BS NOTED. BILAT AKA NOTED. PM MEDS GIVEN. 1999 FSBS 105. PT CURRENTLY WATCHING TV. SR UP X2, CALL LIGHT WITHIN REACH.
--- NOTE | 2019-06-14 23:59 | NUR ---
RETORIL 30MG PO GIVEN FOR C/O INSOMNIA. PT CONTINUES TO HAVE C/O GOLF TOURNAMENT CONSULTANT NOT WORKING. INFORMED PT AGAIN ABOUT 0.2MG EVERY 10 MINUTES WITH A MAX OF 4MG IN HRS. WILL CONTINUE TO MONITOR.
[2019-06-15] VITALS: BP 118/74
--- NOTE | 2019-06-15 02:07 | NUR ---
PT RESTING WITH EYES CLOSED. RESP EVEN AND REGULAR WITH A REATE OF 12/MINUTE. SR UP X2, CALL LIGHT WITHIN REACH.
--- NOTE | 2019-06-15 03:50 | NUR ---
PT AWAKE, NO CHANGE IN STASTUS NOTED. VSS. SR UP X2, CALL LIGHT WITHIN REACH.
[2019-06-15 04:00] VITALS: BP 117/74
--- NOTE | 2019-06-15 04:29 | NUR ---
PT RESTING WITH EYES CLOSED. RESP EVEN AND REGULAR. SR UP X2, CALL LIGHT WITHIN REACH.
--- NOTE | 2019-06-15 05:49 | NUR ---
VSS THROUGHOUT NIGHT. PT CONTINUES TO BE UNHAPPY ABOUT BRADLEY LINEBACKER CREWMEMBER LOCK OUT. NPO FOR AM LHC. CALL LIGHT WITHIN REACH.
[2019-06-15 06:27] LABS: HEMATOCRIT 29.9 % (36.0-48.0); HEMOGLOBIN 9.7 g/dL (12-16); MCH 30.5 pg (26.0-34.0); MCHC 32.4 g/dL (31.0-37.0); MEAN PLATELET VOLUME 9.2 fL (7.4-10.4); PLATELET COUNT 193 10x3/uL (130-400); RBC 3.18 10x6/uL (4.00-5.40); WBC 2.2 10x3/uL (4.8-10.8)
[2019-06-15 06:54] LABS: CALC OSMOLALITY 281 mosm/kg (275-300); CALCIUM 8.2 mg/dL (8.5-10.1); CARBON DIOXIDE 31.4 mmol/L (21.0-32.0); CHLORIDE - SERUM 106 mmol/L (98-107); CREATININE - SERUM 0.6 mg/dL (0.6-1.3); GLUCOSE 84 mg/dL (74-106); MAGNESIUM - SERUM 1.8 mg/dL (1.8-2.4); PHOSPHOROUS 3.1 mg/dL (2.5-4.9); POTASSIUM - SERUM 3.4 mmol/L (3.5-5.1); SODIUM 143 mmol/L (136-145); UREA NITROGEN 7 mg/dL (7-18); eGFR NON AFRICAN AMERICAN > 90 mL/min (90-120)
[2019-06-15 07:53] VITALS: BP 107/66
[2019-06-15 10:03] LABS: EOSINOPHILS 15 % (0-7); LYMPHOCYTES 36 % (15-50); MONOCYTES 5 % (2-11); NEUTROPHILS 44 % (40-80); PLATELET ESTIMATE NORMAL
[2019-06-15 10:04] LABS: ROULEAUX OCC
--- NOTE | 2019-06-15 10:51 | NUR ---
PT TAKEN TO SOFTWARE VALIDATION ENGINEER VIA BED.
[2019-06-15 11:03] VITALS: BP 132/74
--- NOTE | 2019-06-15 11:24 | NUR ---
SPOKE WITH FAILURE ANALYSIS TECHNICIAN THEY STATE DR. ROJO DID A LEFT HEART CATH AND IT WAS A CLEAN CATH. GAVE 100 FENTANYL AND 2 VERSED. WENT THROUGH RIGHT GROIN AND CLOSED WITH 5 CHINESE EXOCIL.
--- NOTE | 2019-06-15 14:49 | NUR ---
DC'D DILAUDID CONDENSER OPERATOR. FLUSHED AND SL PT'S RIGHT CHEST CENTRAL LINE. DC PLANNING DINE WITH PT. DC PAPERS SIGNED. PT STATES HER RIDE WON'T BE HERE WILL 1599.
--- NOTE | 2019-06-15 14:57 | MORECARE ---
CASE MANAGEMENT DISCHARGE SUMMARY PATIENT: BRAD GREY UNIT: [id number] ADM DATE: 06/12/19 AGE: 59 : 56 SEX: F ROOM/BED: D.0120 AUTHOR: SLIME CASTANEDA PHYSICIAN: REFERRING PHYSICIAN: DENNIS PATEL MD DATE OF SERVICE: 06/15/19 Discharge Plan Patient Name: BRAD GREY [facility] [facility] 1960 Planned Disposition: Home with Home Health Anticipated Discharge Date: 06/15/19 Discharge Date: Expected LOS: 3 Initial Reviewer: [email or web address] Initial Review Date: 06/12/2019 Generated: 06/15/19 3:57 pm External Providers External Provider: [facility] Next Contact Date: 06/15/2019 Service Request Date: Service Type: Resolution: Reviewer: Comments: External Provider: [facility] Next Contact Date: 06/15/2019 Service Request Date: Service Type: Resolution: Reviewer: Comments: Coverage Notice Reviewer: [email or web address] Sandra Musa Notice Issued Date-Time: 06/15/2019 14:30 Notice Type: Patient Choice Letter Notice Delivered To: Patient Relationship to Patient: Cna Hha Name: Delivery Method: HAND - Hand Delivered [place] Days: Prior Verbal Notification: Recipient Understood Notice: Yes Recipient Signature: Yes Med Rec Note Co-signed by Attending: Coverage Notice Comment: [facility] Last DP export: 06/12/19 6:27 p Patient Name: BRAD GREY Page 87036 at 1457 All edits/amendments must be made on the electronic document DICTATION DATE: 06/15/191456 SNOW REMOVAL SUPERVISOR: JOSE D 06/15/191456 RPT#: [id number] IN DATE: STATUS: ADM IN [facility] [address] [place] [address] END OF REPORT
--- NOTE | 2019-06-15 14:58 | NUR ---
TELEMETRY CHARISMA'Kaley.
--- NOTE | 2019-06-15 15:24 | MORECARE ---
CASE MANAGEMENT DISCHARGE SUMMARY PATIENT: BRAD GREY UNIT: [id number] ADM DATE: 06/12/19 AGE: 59 : 56 SEX: F ROOM/BED: D.8495 AUTHOR: LEONEL,DOC PHYSICIAN: REFERRING PHYSICIAN: DENNIS PATEL MD DATE OF SERVICE: 06/15/19 Discharge Plan Patient Name: BRAD GREY Facility: [facility]:[place] : 1960 Planned Disposition: Home with Home Health Anticipated Discharge Date: 06/15/19 Discharge Date: Expected LOS: 3 Initial Reviewer: [email or web address] Initial Review Date: 06/12/2019 Generated: 06/15/19 4:24 pm Comments DCP- Discharge Planning Updated by [id number]: Rojas Musa on 06/15/19 2:[address] Patient Name: BRAD GREY Admission Status: ER Accout number: [id number] Admission Date: 06-12-2019 : 1960 Admission Diagnosis: Attending: STACY PATEL Current LOS: 3 Anticipated DC Date: 06-15-2019 Planned Disposition: Home with Home Health Primary Insurance: MEDICAID [place] PLANNED EXTERNAL PROVIDER: [facility] / [facility] Discharge Planning Comments: CM RECEIVED DISCHARGE ORDER WITH ORDER TO RESUME HOME HEALTH AND INFUSION PREVIOUSLY ARRANGED. CM MET WITH PT IN ROOM TO DISCUSS DISCHARGE PLANNING AND NEEDS. PT REPORTS LIVING AT HOME INDEPENDENTLY AND ALONE. PT HAS HOSPITAL BED AND WHEELCHAIR WITH NO MEDICAL EQUIPMENT PROVIDER PREFERENCE. PT STATES SHE IS GETTING AN ELECTRIC WHEELCHAIR THIS SATURDAY OR SATURDAY. PT HAS [facility] FROM [place] AND [facility] FOR HOME ANTIBIOTIC THERAPY. PT HAS BEEN MANAGING IV ANTIBIOTICS HERSELF WITH ASSISTANCE OF HOME HEALTH. PT WISHES TO RESUME SERVICES TODAY. CHOICE LETTER SIGNED. PT HAS NO OTHER OUTSIDE SERVICES ASSISTING IN THE HOME. CM DISCUSSED AVAILABILITY OF HOME HEALTH, REHAB SERVICES AND MEDICAL EQUIPMENT. PT DENIES DISCHARGE NEEDS, REPORTS HER BROTHER WILL PICK HER UP FOR DISCHARGE HOME TODAY. CM CALLED [facility] [place] [facility], , SPOKE TO JULIUS WHO ACCEPTED REFERRAL FOR HOME HEALTH RESUMPTION. CM FAXED REFERRAL AND DISCHARGE INFORMTION TO [facility] AT [phone]. CM CALLED [facility], , SPOKE TO MASON DIANE WHO WILL ARRANGE DELIVERY OF HOME ANTIBIOTICS THIS EVENING FOR 6PM VIA SHAMPOO ASSISTANT. CM FAXED REFERRAL AND DISCHARGE INFORMATION TO [facility] AT [phone]. PT NOTIFIED WHO DENIES FURTHER NEEDS. PT STATES HER BROTHER IS ON HIS WAY TO PICK HER UP AT 4PM TODAY. ASSEMBLER CATERPILLAR SPIDER NURSE NOTIFIED. Leadership Program Associate: Rojas Musa Coverage Notice Reviewer: [id number] - Rojas Musa Notice Issued Date-Time: 06/15/2019 14:30 Notice Type: Patient Choice Letter Notice Delivered To: Patient Relationship to Patient: Digital Content Producer Name: Delivery Method: HAND - Hand Delivered Lisset Days: Prior Verbal Notification: Recipient Understood Notice: Yes Recipient Signature: Yes Med Rec Note Co-signed by Attending: Coverage Notice Comment: [facility] / [facility] Last DP export: 06/15/19 1:57 p Patient Name: BRAD GREY Page 16440 at 1524 All edits/amendments must be made on the electronic document DICTATION DATE: 06/15/19 152 SCHOOL STANDARDS COACH: JOSE D 06/15/19 1523 RPT#: [id number] DC DATE: STATUS: ADM IN [facility] [address] [place] [address] END OF REPORT
--- NOTE | 2019-06-15 16:13 | NUR ---
PT TAKEN DOWN BY PT'S OWN WC BY ANNALISE. PT'S FAMILY MEMEBER IN THEIR PERSONAL CAR TAKING PT HOME.
--- NOTE | 2019-06-15 16:57 | MORECARE ---
CASE MANAGEMENT DISCHARGE SUMMARY PATIENT: BRAD GREY UNIT: [id number] ADM DATE: 06/12/19 AGE: 59 : 56 SEX: F ROOM/BED: D.0442 AUTHOR: LOENELDOC PHYSICIAN: REFERRING PHYSICIAN: DENNIS PATEL MD DATE OF SERVICE: 06/15/19 Discharge Plan Patient Name: BRAD GREY Facility: [facility]:[place] : 1960 Planned Disposition: Home with Home Health Anticipated Discharge Date: 06/15/19 Discharge Date: 06/15/2019 Expected LOS: 3 Initial Reviewer: [email or web address] Initial Review Date: 06/12/2019 Generated: 06/15/19 5:56 pm Comments DCP- Discharge Planning Updated by [id number]: Rojas Musa on 06/15/19 2:[address] Patient Name: BRAD GREY Admission Status: ER Accout number: [id number] Admission Date: 06-12-2019 : 1960 Admission Diagnosis: Attending: STACY PATEL Current LOS: 3 Anticipated DC Date: 06-15-2019 Planned Disposition: Home with Home Health Primary Insurance: MEDICAID [place] PLANNED EXTERNAL PROVIDER: [facility] / [place] Discharge Planning Comments: CM RECEIVED DISCHARGE ORDER WITH ORDER TO RESUME HOME HEALTH AND INFUSION PREVIOUSLY ARRANGED. CM MET WITH PT IN ROOM TO DISCUSS DISCHARGE PLANNING AND NEEDS. PT REPORTS LIVING AT HOME INDEPENDENTLY AND ALONE. PT HAS HOSPITAL BED AND WHEELCHAIR WITH NO MEDICAL EQUIPMENT PROVIDER PREFERENCE. PT STATES SHE IS GETTING AN ELECTRIC WHEELCHAIR THIS SATURDAY OR SATURDAY. PT HAS [facility] FROM [place] AND [facility] FOR HOME ANTIBIOTIC THERAPY. PT HAS BEEN MANAGING IV ANTIBIOTICS HERSELF WITH ASSISTANCE OF HOME HEALTH. PT WISHES TO RESUME SERVICES TODAY. CHOICE LETTER SIGNED. PT HAS NO OTHER OUTSIDE SERVICES ASSISTING IN THE HOME. CM DISCUSSED AVAILABILITY OF HOME HEALTH, REHAB SERVICES AND MEDICAL EQUIPMENT. PT DENIES DISCHARGE NEEDS, REPORTS HER BROTHER WILL PICK HER UP FOR DISCHARGE HOME TODAY. CM CALLED [facility], , SPOKE TO JULIUS WHO ACCEPTED REFERRAL FOR HOME HEALTH RESUMPTION. CM FAXED REFERRAL AND DISCHARGE INFORMTION TO [facility] AT [phone]. CM CALLED [facility], , SPOKE TO MASON DIANE WHO WILL ARRANGE DELIVERY OF HOME ANTIBIOTICS THIS EVENING FOR 6PM VIA MOVER. CM FAXED REFERRAL AND DISCHARGE INFORMATION TO [facility] AT [phone]. PT NOTIFIED WHO DENIES FURTHER NEEDS. PT STATES HER BROTHER IS ON HIS WAY TO PICK HER UP AT 4PM TODAY. JAZZ MUSICIAN NURSE NOTIFIED. Cop Examiner: Rojas Musa DCPIA - Discharge Planning Initial Assessment Updated by [id number]: Rojas Musa on 06/15/19 4:46 pm * Is the patient Alert and Oriented? Yes * How many steps to enter\exit or inside your home? RAMP * PCP [facility] * Pharmacy [facility] IN [place] * Preadmission Environment Home Alone * ADLs Independent * Equipment Hospital Bed Wheelchair * Other Equipment NO MEDICAL EQUIPMENT PROVIDER PREFERENCE * List name and contact numbers for known caregivers / representatives who currently or will assist patient after discharge: BROTHER REID, * Verbal permission to speak to the caregivers and representatives has been obtained from the patient. N/A * Community resources currently utilized Home Health * Please name any agencies selected above. [facility] * Additional services required to return to the preadmission environment? No * Can the patient safely return to the preadmission environment? Yes * Has this patient been hospitalized within the prior 30 days at any hospital? No Coverage Notice Reviewer: [id number] - Rojas Musa Notice Issued Date-Time: 06/15/2019 14:30 Notice Type: Patient Choice Letter Notice Delivered To: Patient Relationship to Patient: Garment Steamer Name: Delivery Method: HAND - Hand Delivered Lisset Days: Prior Verbal Notification: Recipient Understood Notice: Yes Recipient Signature: Yes Med Rec Note Co-signed by Attending: Coverage Notice Comment: [facility] / [facility] Last DP export: 06/15/19 2:24 p Patient Name: BRAD GREY Page [id number] at 8055 All edits/amendments must be made on the electronic document DICTATION DATE: 06/15/191655 GLYCERINE PLANT OPERATOR: JOSE D 06/15/191655 RPT#: [id number] DC DATE:06/15/19 STATUS: DIS IN [facility] [address] [place] [address] END OF REPORT
--- NOTE | 2019-06-16 13:38 | OP ---
PATIENT NAME: BRAD GREY MEDICAL RECORD: [id number] :56 LOCATION:D.M2 D.2120 ADMISSION DATE:06/12/19 SURGEON: CHRISTIANO GUZMAN MD DATE OF OPERATION: 06/15/2019 PROCEDURES: 1. Left heart catheterization. 2. Selective coronary angiography. 3. Left ventriculogram. INDICATION: Angina, family history of coronary artery disease, and abnormal nuclear stress test. PROCEDURE IN DETAIL: After informed consent was obtained and after a detailed description of risks, benefits as well as alternative therapies, the patient elected to proceed with angiogram and heart catheterization. The right femoral area was prepped and draped in normal sterile fashion. Right femoral artery was cannulated via modified Seldinger technique with placement of 5-Greenlandic sheath. All catheters exchanged through this sheath. FINDINGS: Left ventriculogram was performed in standard 30-degree SEARS view, reveals good cardiac wall motion, ejection fraction is 60%. SELECTIVE CORONARY ANGIOGRAPHY: Left main, left anterior descending, left circumflex, right coronary artery are all smooth-walled vessels with no angiographic evidence of coronary artery disease. OVERALL IMPRESSION: 1. No angiographic evidence of coronary artery disease. 2. Normal left heart pressures. 3. Normal left ventricular systolic function. Chest pain is noncardiac in etiology. TRANSINT:[id number] Voice Confirmation ID: [id number] DOCUMENT ID: [id number] CHRISTIANO GUZMAN MD at 1338 CC: [id number] DICTATION DATE: 06/15/19 1119 WORKING SECOND HAND: 06/15/19 1149 DIS IN 06/15/19 [place] [id number] [place] [id number]
== END 2019-06-15 16:14 | disposition home health service (06) | DRG 602 ==
LOC: D.ER 13:55 → D.M2 18:46
PROVIDERS: Family Medicine; Internal Medicine Interventional Cardiology; ADMIT Emergency Medicine; ATTEND Emergency Medicine
PROC: B2151ZZ Fluoroscopy of Left Heart using Low Osmolar Contrast (ICD-10-PCS; 2019-06-15)
PROC: 4A023N7 Measurement of Cardiac Sampling and Pressure, Left Heart, Percutaneous Approach (ICD-10-PCS; 2019-06-15)
PROC: B2111ZZ Fluoroscopy of Multiple Coronary Arteries using Low Osmolar Contrast (ICD-10-PCS; principal; 2019-06-15 11:00)
DX: L03.313 Cellulitis of chest wall (principal); I50.23 Acute on chronic systolic (congestive) heart failure; I71.4 Abdominal aortic aneurysm, without rupture; I11.0 Hypertensive heart disease with heart failure; D50.9 Iron deficiency anemia, unspecified; K21.9 Gastro-esophageal reflux disease without esophagitis; E16.2 Hypoglycemia, unspecified; M06.9 Rheumatoid arthritis, unspecified; D70.9 Neutropenia, unspecified; F32.9 Major depressive disorder, single episode, unspecified